=== PATIENT | female | born 1975 ===

== ENCOUNTER 2022-04-21 09:33 | Day surgery (SDC) | payer OTHER ==
[~2022-04-21] VITALS: Ht 165.1 cm; Wt 56.7 kg
[2022-04-21] MEDS ORDERED: NAPR500T14 PO (12:14)
[2022-04-21] MEDS ORDERED: MORGIDOX100 MG PO (12:14)
== END 2022-04-21 16:25 | disposition home or self-care (01) ==
LOC: CIR.AMB 09:33
PROVIDERS: ATTEND Obstetrics & Gynecology
DX: N84.0 Polyp of corpus uteri (principal); N72 Inflammatory disease of cervix uteri; Z86.16 Personal history of COVID-19

== ENCOUNTER 2024-03-04 08:00 | Inpatient (IN) | payer OTHER ==
[~2024-03-04] VITALS: Ht 165.1 cm; Wt 55.8 kg
[~2024-03-04 08:00] MED LIST: MORGIDOX100 MG PO; NAPR500T14 PO
[2024-03-04 09:36] LABS: PH,URINE 5.5 (5.0-8.0); URINE APPEARANCE Clear; URINE BILIRRUBIN Negative (NEGATIVE); URINE BLOOD Negative; URINE COLOR Yellow; URINE GLUCOSE Negative (NEGATIVE); URINE LEUKOCYTE Trace; URINE NITRATE Negative; URINE PROTEIN Negative (NEGATIVE); URINE UROBILINOGEN 0.2 E.U./dl
[2024-03-04 09:38] LABS: HEMATOCRIT 35.3 % (36.0-45.00); HEMOGLOBIN 11.3 g/dL (12.0-15.00); MEAN CELL VOLUME 70.1 fL (80.00-100.00); MEAN CORPUSCULAR HEMOGLOBIN 22.5 pg (27.00-32.0); MEAN CORPUSCULAR HGB CONC 32.1 g/dl (32.0-36.0); PLATELET COUNT 268 K/uL (150-450); RED BLOOD COUNT 5.04 M/uL (4.00-6.00); RED CELL DISTRIBUTION WIDTH 15.7 % (11.5-14.5); URINE EPITHELIAL CELLS 43.5 uL (0.0-38.8); URINE RBC 5.9 uL (0.0-20.8); URINE WBC 19.9 uL (0.0-23.2)
[2024-03-04 10:02] LABS: INR 0.98; PARTIAL THROMBOPLASTIN TIME 25.6 SECONDS (22.0-34.0); PROTHROMBIN TIME 10.3 SECONDS (9.0-11.5)
[2024-03-04 10:20] LABS: ALBUMIN 3.5 gm/dL (3.4-5.0); BILIRUBIN TOTAL 0.73 mg/dL (0.3-1.2); CREATININE SERUM 0.68 mg/dL (0.55-1.02); GFR 91.59; GLOBULINA 3.5 G/DL (2.4-3.5); POTASSIUM 4.04 mEq/L (3.5-5.1); TSH 2.06 uIU/mL (0.358-3.74)
[2024-03-07] MEDS ORDERED: CEFOXITIN SODIUM 2,000 MG VIAL IV ONE (09:45)
[2024-03-07] MEDS ORDERED: PROFERRIN-FORT1 EACH (09:53)
[2024-03-07] MEDS ORDERED: [UNRECOGNIZED DRUG - OTHER] (09:53)
[2024-03-07] MEDS ORDERED: METRONIDAZOLE60 GM (09:53)
[2024-03-07] MEDS ORDERED: CENTRUM COMPLE1 EACH (09:53)
[2024-03-07] MEDS ORDERED: LONITEN2.5 MG (09:54)
[2024-03-07] MEDS ORDERED: SIMETHICONE 125 MG CAPSULE PO SCH (10:55)
[2024-03-07] MEDS ORDERED: RINGERS SOLUTION,LACTATED 1,000 ML IV SCH (11:00)
[2024-03-07] MEDS ORDERED: PROMETHAZINE HCL 50 MG/ML AMPUL IV SCH (12:00)
[2024-03-07] MEDS ORDERED: MEPERIDINE HCL/PF 50 MG/ML VIAL IV SCH (12:00)
[2024-03-07 15:36] LABS: HEMATOCRIT 32.5 % (36.0-45.00); HEMOGLOBIN 10.5 g/dL (12.0-15.00); MEAN CORPUSCULAR HEMOGLOBIN 22.6 pg (27.00-32.0); MEAN CORPUSCULAR HGB CONC 32.3 g/dl (32.0-36.0); PLATELET COUNT 241 K/uL (150-450); RED BLOOD COUNT 4.64 M/uL (4.00-6.00); RED CELL DISTRIBUTION WIDTH 15.1 % (11.5-14.5)
[2024-03-08] MEDS ORDERED: NAPR500T14 PO (08:59)
[2024-03-08] MEDS ORDERED: Tylenol #3 PO (08:59)
== END 2024-03-08 12:30 | disposition home or self-care (01) | DRG 743 ==
LOC: O/R 03-07 07:45 → SURH 03-07 08:00 → OB/GYN 03-07 13:25 → SURH 03-07 15:00 → OB/GYN 03-08 12:30
PROVIDERS: ADMIT Obstetrics & Gynecology; ATTEND Obstetrics & Gynecology
PROC: 0UT7FZZ Resection of Bilateral Fallopian Tubes, Via Natural or Artificial Opening With Percutaneous Endoscopic Assistance (ICD-10-PCS; 2024-03-07)
PROC: 0UT2FZZ Resection of Bilateral Ovaries, Via Natural or Artificial Opening With Percutaneous Endoscopic Assistance (ICD-10-PCS; 2024-03-07)
PROC: 0JQC0ZZ Repair Pelvic Region Subcutaneous Tissue and Fascia, Open Approach (ICD-10-PCS; 2024-03-07)
PROC: 0USG4ZZ Reposition Vagina, Percutaneous Endoscopic Approach (ICD-10-PCS; 2024-03-07)
PROC: 0TJB8ZZ Inspection of Bladder, Via Natural or Artificial Opening Endoscopic (ICD-10-PCS; 2024-03-07)
PROC: 0UT9FZZ Resection of Uterus, Via Natural or Artificial Opening With Percutaneous Endoscopic Assistance (ICD-10-PCS; principal; 2024-03-07 15:00)
DX: D25.1 Intramural leiomyoma of uterus (principal); D25.0 Submucous leiomyoma of uterus; N80.03 Adenomyosis of the uterus; N81.11 Cystocele, midline; N72 Inflammatory disease of cervix uteri; N83.311 Acquired atrophy of right ovary; N83.312 Acquired atrophy of left ovary; Z20.822 Contact with and (suspected) exposure to COVID-19; N92.0 Excessive and frequent menstruation with regular cycle; N84.0 Polyp of corpus uteri